=== PATIENT | male | born 1970 | race Caucasian/White ===

== ENCOUNTER 2018-08-06 20:50 | Emergency (ER) | payer OTHER ==
[~2018-08-06] VITALS: Ht 175.3 cm; Wt 105.0 kg
[2018-08-06] MEDS ORDERED: FLEXERIL PO (21:01)
[2018-08-06] MEDS ORDERED: NAPROSYN500 MG PO (21:01)
[2018-08-06 21:04] VITALS: BP 158/88
== END 2018-08-06 21:04 | disposition home or self-care (01) | DRG 563 ==
LOC: ED 20:50
DX: S39.012A Strain of muscle, fascia and tendon of lower back, initial encounter (principal); X50.0XXA Overexertion from strenuous movement or load, initial encounter; Y93.F2 Activity, caregiving, lifting; Y92.238 Other place in hospital as the place of occurrence of the external cause; Y99.0 Civilian activity done for income or pay

== ENCOUNTER → 2018-08-13 | Outpatient (REF) ==
[~2018-08-13] MED LIST: FLEXERIL PO; NAPROSYN500 MG PO
[2018-08-13 08:38] LABS: CHOLESTEROL HDL RATIO 5.3 (<4.4 (CALC))
== END | disposition home or self-care (01) | DRG 951 ==
LOC: LAB 07:16
PROVIDERS: ATTEND Family Medicine
DX: Z02.6 Encounter for examination for insurance purposes (principal)

== ENCOUNTER 2019-07-03 | Emergency (ER) | payer OTHER ==
[2019-07-03] MEDS ORDERED: ZETIA10 MG PO (17:21)
[2019-07-03] MEDS ORDERED: NORVASC10 M1 PO (17:21)
[2019-07-03] MEDS ORDERED: ASPIRIN325 MG PO (17:22)
[2019-07-03] MEDS ORDERED: LISINOPRIL5 MG PO (17:22)
== END 2019-07-03 17:52 | disposition home or self-care (01) | DRG 951 ==
DX: Z20.89 Contact with and (suspected) exposure to other communicable diseases (principal); E11.9 Type 2 diabetes mellitus without complications; I10 Essential (primary) hypertension

== ENCOUNTER 2019-12-31 09:12 | Emergency (ER) | payer OTHER ==
[~2019-12-31] VITALS: Ht 175.3 cm; Wt 104.0 kg
[~2019-12-31 09:12] MED LIST changes: +ASPIRIN325 MG PO; +LISINOPRIL5 MG PO; +NORVASC10 M1 PO; +ZETIA10 MG PO
[2019-12-31 10:02] VITALS: BP 151/92
== END 2019-12-31 10:02 | disposition home or self-care (01) | DRG 156 ==
LOC: ED 09:12
DX: H92.01 Otalgia, right ear (principal); E11.9 Type 2 diabetes mellitus without complications; I10 Essential (primary) hypertension; Y04.2XXA Assault by strike against or bumped into by another person, initial encounter; Y93.F9 Activity, other caregiving; Y92.238 Other place in hospital as the place of occurrence of the external cause; Y99.0 Civilian activity done for income or pay

== ENCOUNTER 2022-10-18 05:30 | Emergency (ER) | payer OTHER ==
[~2022-10-18] VITALS: Ht 172.7 cm; Wt 97.0 kg
[2022-10-18] MEDS ORDERED: LOTREL1 CA6 PO (05:49)
[2022-10-18] MEDS ORDERED: JANUVIA100 MG PO (05:51)
[2022-10-18] MEDS ORDERED: OZEMPIC2 MG SC (05:52)
[2022-10-18] MEDS ORDERED: HYDROCO/APAP1 TA9 PO (07:30)
[2022-10-18 07:38] VITALS: BP 141/97
== END 2022-10-18 07:42 | disposition still patient (30) | DRG 556 ==
LOC: ED 05:30
DX: M25.562 Pain in left knee (principal)